=== PATIENT | male | born 1970 | race Caucasian/White ===

== ENCOUNTER 2020-11-02 09:49 | Observation (INO) ==
[2020-11-02] MEDS ORDERED: LORazepam 1 MG/2 ML VIAL IV STA (11:28)
--- NOTE | 2020-11-02 11:31 | Emergency Department Note ---
History of Present Illness General Chief complaint: Dehydration Stated complaint: DEHYDRATED, NAUSEA, HEADACHE Time Seen by Provider: 11/02/20 11:18 History of Present Illness This is a 50-year-old male that presents to the emergency department via private vehicle accompanied by female with complaints of "dehydrated, nausea, headache". The patient notes that October night he began with what he describes as an in digestion sensation in the upper abdomen. He notes that he has been away from home and been eating a lot of seafood. He states that now he time he goes to eat he vomits. He also notes some mild achy sensation from this. He also notes pain with urination. He also notes intermittent fever. Patient does note history of partial colectomy in 2014. The patient denies any other medical history or allergies. He also feels restless and is having trouble sleeping Home Medications Medication Instructions Recorded Confirmed Type sertraline 100 mg tablet 200 mg PO DAILY 11/02/20 11/02/20 History Allergies Allergy/AdvReac Type Severity Reaction Status Date / Time No Known Allergies Allergy Unverified 09/23/15 07:59 Past Med/Surg History Medical History Familial polyposis Surgical History (Updated 11/02/20 @ 17:38 by Carlos Narvaez PA-C) Hx of colectomy Social History Smoking Status: Never smoker Feels Safe at Home: Yes Review of Systems A total of 10 systems reviewed and were otherwise negative Physical Exam Vital Signs Vital Signs - 24 hr 11/02/20 09:55 11/02/20 11:17 11/02/20 11:30 Temperature 37.1 C Temperature Source Temporal Artery Scan Pulse Rate 110 H 94 H 91 H Pulse Rate from SpO2 Sensor 96 H 92 H Respiratory Rate 18 22 20 Blood Pressure 150/84 H 121/72 128/75 Blood Pressure Mean 106 88 92 Pulse Oximetry 95 98 97 Oxygen Delivery Method Sepsis Recent Fever Within 48 Hours Yes Sepsis New/Unexplained Change in Mental Status No Sepsis Action Taken by Nursing No Action Required 11/02/20 12:00 11/02/20 12:29 11/02/20 12:30 Temperature Temperature Source Pulse Rate 87 93 H Pulse Rate from SpO2 Sensor 88 93 H Respiratory Rate 17 22 Blood Pressure 126/72 128/80 Blood Pressure Mean 90 96 Pulse Oximetry 98 97 98 Oxygen Delivery Method Room Air Sepsis Recent Fever Within 48 Hours Sepsis New/Unexplained Change in Mental Status Sepsis Action Taken by Nursing 11/02/20 13:00 11/02/20 13:30 11/02/20 14:00 Temperature Temperature Source Pulse Rate 91 H 92 H 93 H Pulse Rate from SpO2 Sensor 90 93 H 93 H Respiratory Rate 22 22 20 Blood Pressure 119/82 137/80 136/81 Blood Pressure Mean 94 99 99 Pulse Oximetry 94 96 96 Oxygen Delivery Method Sepsis Recent Fever Within 48 Hours Sepsis New/Unexplained Change in Mental Status Sepsis Action Taken by Nursing 11/02/20 14:30 11/02/20 15:01 11/02/20 15:30 Temperature Temperature Source Pulse Rate 90 98 H 88 Pulse Rate from SpO2 Sensor 87 Respiratory Rate 22 16 22 Blood Pressure 125/80 124/77 Blood Pressure Mean 95 92 Pulse Oximetry 94 Oxygen Delivery Method Sepsis Recent Fever Within 48 Hours Sepsis New/Unexplained Change in Mental Status Sepsis Action Taken by Nursing 11/02/20 17:00 Temperature Temperature Source Pulse Rate 87 Pulse Rate from SpO2 Sensor 89 Respiratory Rate 17 Blood Pressure 130/75 Blood Pressure Mean 93 Pulse Oximetry 96 Oxygen Delivery Method Sepsis Recent Fever Within 48 Hours Sepsis New/Unexplained Change in Mental Status Sepsis Action Taken by Nursing Course Administered Medications Discontinued Medications Lorazepam (Ativan) 1 mg in 2 mls @ 2 mls/min IV NOW STA Stop: 11/02/20 11:29 Last Admin: 11/02/20 12:03 Dose: 2 mls/min Documented by: [id number] Sodium Chloride (Nss 1000ml) 1,000 mls @ 999 mls/hr IV .Q1H1M SHAD Stop: 11/02/20 13:00 Last Infusion: 11/02/20 14:40 Dose: 0 mls/hr Documented by: [id number] Admin: 11/02/20 12:08 Dose: 999 mls/hr Documented by: [id number] Ceftriaxone Sodium (Rocephin) 2,000 mg in 70 mls @ 140 mls/hr IV NOW STA Stop: 11/02/20 12:50 Last Infusion: 11/02/20 13:19 Dose: 0 mls/hr Documented by: [id number] Admin: 11/02/20 12:41 Dose: 140 mls/hr Documented by: [id number] Sodium Chloride (Nss 1000ml) 1,000 mls @ 999 mls/hr IV .Q1H1M SHAD Stop: 11/02/20 13:30 Last Infusion: 11/02/20 15:14 Dose: 0 mls/hr Documented by: [id number] Admin: 11/02/20 14:10 Dose: 999 mls/hr Documented by: [id number] Ioversol (Optiray 320 100ml) 94 ml IV ONCE ONE Stop: 11/02/20 12:17 Last Admin: 11/02/20 12:16 Dose: 94 ml Documented by: [id number] Ondansetron HCl (Ondansetron Inj 2 Mg/Ml 2 Ml Vial) 4 mg IV NOW STA Stop: 11/02/20 11:47 Last Admin: 11/02/20 12:03 Dose: 4 mg Documented by: [id number] Medical Decision Making Laboratory Data Result diagrams: 11/02/20 11:09 11/02/20 11:09 Lab Results 11/02/20 11/02/20 11/02/20 Range/Units 11:09 11:09 11:09 WBC 3.74 L (4.8-10.8) K/uL RBC 4.20 L (4.7-6.1) M/uL Hgb 13.3 L (14.0-18.0) g/dL Hct 39.2 L (42-52) % MCV 93.3 (80-100) fL MCH 31.7 (25-34) pg MCHC 33.9 (32-36) g/dL RDW Std Deviation 45.2 (36.4-46.3) fL RDW Coeff of Judy 13.2 (11.5-14.5) % Plt Count 146 (130-400) K/uL MPV 11.0 H (7.4-10.4) fL Immature Gran % (Auto) 0.3 % Neut % (Auto) 74.8 % Lymph % (Auto) 13.1 % [place] % (Auto) 11.2 % Eos % (Auto) 0.3 % Baso % (Auto) 0.3 % Neut # (Auto) 2.80 (1.4-6.5) K/uL Lymph # (Auto) 0.49 L (1.2-3.4) K/uL [place] # (Auto) 0.42 (0.11-0.59) K/uL Eos # (Auto) 0.01 (0-0.5) K/uL Baso # (Auto) 0.01 (0-0.2) K/uL Immature Gran # (Auto) 0.01 (0.00-0.02) K/uL Sodium 136 (136-145) mmol/L Potassium 3.2 L (3.5-5.1) mmol/L Chloride 103 (98-107) mmol/L Carbon Dioxide 24 (21-32) mmol/L Anion Gap 8.0 (3-11) BUN 9 (7-18) mg/dl Creatinine 0.96 (0.6-1.4) mg/dl Est Cr Clr Drug Dosing 128.8 ml/min Est GFR ( Amer) 107.9 ml/min Est GFR (Non-Af Amer) 93.1 ml/min BUN/Creatinine Ratio 9.8 L (10-20) Glucose 117 H (70-99) mg/dl Lactate (0.4-2.0) mmol/L Calcium 8.8 (8.5-10.1) mg/dl Magnesium 1.9 (1.8-2.4) mg/dl Total Bilirubin 0.8 (0.2-1) mg/dl AST 49 H (15-37) U/L ALT 57 (12-78) U/L Alkaline Phosphatase 97 (45-117) U/L Troponin I < 0.015 (0-0.045) ng/ml Total Protein 7.9 (6.4-8.2) gm/dl Albumin 3.3 L (3.4-5.0) gm/dl Globulin 4.6 H (2.5-4.0) gm/dl Albumin/Globulin Ratio 0.7 L (0.9-2) Lipase 81 (73-393) U/L Procalcitonin 0.84 H (0-0.5) ng/ml TSH 0.583 (0.300-4.500) uIu/ml Urine Color Urine Appearance (Clear) Urine pH (4.5-7.5) Ur Specific Howell (1.000-1.030) Urine Protein (Negative) Urine Glucose (UA) (Negative) Urine Ketones (Negative) Urine Blood (Negative) Urine Nitrite (Negative) Urine Bilirubin (Negative) Urine Urobilinogen (Negative) Ur Leukocyte Esterase (Negative) Urine WBC (Auto) (0-5) /hpf Urine RBC (Auto) (0-4) /hpf U Hyaline Cast (Auto) (0-5) /lpf U Epithel Cells (Auto) (0-5) /lpf Urine Bacteria (Auto) (Negative) Anaplasma Smear Lyme Disease IgG Ab Negative (Negative) Lyme Disease IgM Ab Negative (Negative) COVID-19 Eval Order SARS-CoV-2 (PCR) (Negative) 11/02/20 11/02/20 11/02/20 Range/Units 11:09 11:09 11:09 WBC (4.8-10.8) K/uL RBC (4.7-6.1) M/uL Hgb (14.0-18.0) g/dL Hct (42-52) % MCV (80-100) fL MCH (25-34) pg MCHC (32-36) g/dL RDW Std Deviation (36.4-46.3) fL RDW Coeff of Judy (11.5-14.5) % Plt Count (130-400) K/uL MPV (7.4-10.4) fL Immature Gran % (Auto) % Neut % (Auto) % Lymph % (Auto) % [place] % (Auto) % Eos % (Auto) % Baso % (Auto) % Neut # (Auto) (1.4-6.5) K/uL Lymph # (Auto) (1.2-3.4) K/uL [place] # (Auto) (0.11-0.59) K/uL Eos # (Auto) (0-0.5) K/uL Baso # (Auto) (0-0.2) K/uL Immature Gran # (Auto) (0.00-0.02) K/uL Sodium (136-145) mmol/L Potassium (3.5-5.1) mmol/L Chloride (98-107) mmol/L Carbon Dioxide (21-32) mmol/L Anion Gap (3-11) BUN (7-18) mg/dl Creatinine (0.6-1.4) mg/dl Est Cr Clr Drug Dosing ml/min Est GFR ( Amer) ml/min Est GFR (Non-Af Amer) ml/min BUN/Creatinine Ratio (10-20) Glucose (70-99) mg/dl Lactate 2.4 H* (0.4-2.0) mmol/L Calcium (8.5-10.1) mg/dl Magnesium (1.8-2.4) mg/dl Total Bilirubin (0.2-1) mg/dl AST (15-37) U/L ALT (12-78) U/L Alkaline Phosphatase (45-117) U/L Troponin I (0-0.045) ng/ml Total Protein (6.4-8.2) gm/dl Albumin (3.4-5.0) gm/dl Globulin (2.5-4.0) gm/dl Albumin/Globulin Ratio (0.9-2) Lipase (73-393) U/L Procalcitonin Cancelled (0-0.5) ng/ml TSH (0.300-4.500) uIu/ml Urine Color Yellow Urine Appearance Clear (Clear) Urine pH 5.5 (4.5-7.5) Ur Specific Howell 1.015 (1.000-1.030) Urine Protein Negative (Negative) Urine Glucose (UA) Negative (Negative) Urine Ketones Negative (Negative) Urine Blood Trace H (Negative) Urine Nitrite Positive A (Negative) Urine Bilirubin Negative (Negative) Urine Urobilinogen Negative (Negative) Ur Leukocyte Esterase 2+ H (Negative) Urine WBC (Auto) >30 H (0-5) /hpf Urine RBC (Auto) 0-4 (0-4) /hpf U Hyaline Cast (Auto) 10-30 H (0-5) /lpf U Epithel Cells (Auto) 0-5 (0-5) /lpf Urine Bacteria (Auto) 4+ H (Negative) Anaplasma Smear Lyme Disease IgG Ab (Negative) Lyme Disease IgM Ab (Negative) COVID-19 Eval Order SARS-CoV-2 (PCR) (Negative) 11/02/20 11/02/20 11/02/20 Range/Units 11:09 11:35 11:35 WBC (4.8-10.8) K/uL RBC (4.7-6.1) M/uL Hgb (14.0-18.0) g/dL Hct (42-52) % MCV (80-100) fL MCH (25-34) pg MCHC (32-36) g/dL RDW Std Deviation (36.4-46.3) fL RDW Coeff of Judy (11.5-14.5) % Plt Count (130-400) K/uL MPV (7.4-10.4) fL Immature Gran % (Auto) % Neut % (Auto) % Lymph % (Auto) % [place] % (Auto) % Eos % (Auto) % Baso % (Auto) % Neut # (Auto) (1.4-6.5) K/uL Lymph # (Auto) (1.2-3.4) K/uL [place] # (Auto) (0.11-0.59) K/uL Eos # (Auto) (0-0.5) K/uL Baso # (Auto) (0-0.2) K/uL Immature Gran # (Auto) (0.00-0.02) K/uL Sodium (136-145) mmol/L Potassium (3.5-5.1) mmol/L Chloride (98-107) mmol/L Carbon Dioxide (21-32) mmol/L Anion Gap (3-11) BUN (7-18) mg/dl Creatinine (0.6-1.4) mg/dl Est Cr Clr Drug Dosing ml/min Est GFR ( Amer) ml/min Est GFR (Non-Af Amer) ml/min BUN/Creatinine Ratio (10-20) Glucose (70-99) mg/dl Lactate (0.4-2.0) mmol/L Calcium (8.5-10.1) mg/dl Magnesium (1.8-2.4) mg/dl Total Bilirubin (0.2-1) mg/dl AST (15-37) U/L ALT (12-78) U/L Alkaline Phosphatase (45-117) U/L Troponin I (0-0.045) ng/ml Total Protein (6.4-8.2) gm/dl Albumin (3.4-5.0) gm/dl Globulin (2.5-4.0) gm/dl Albumin/Globulin Ratio (0.9-2) Lipase (73-393) U/L Procalcitonin (0-0.5) ng/ml TSH (0.300-4.500) uIu/ml Urine Color Urine Appearance (Clear) Urine pH (4.5-7.5) Ur Specific Howell (1.000-1.030) Urine Protein (Negative) Urine Glucose (UA) (Negative) Urine Ketones (Negative) Urine Blood (Negative) Urine Nitrite (Negative) Urine Bilirubin (Negative) Urine Urobilinogen (Negative) Ur Leukocyte Esterase (Negative) Urine WBC (Auto) (0-5) /hpf Urine RBC (Auto) (0-4) /hpf U Hyaline Cast (Auto) (0-5) /lpf U Epithel Cells (Auto) (0-5) /lpf Urine Bacteria (Auto) (Negative) Anaplasma Smear See Comment Lyme Disease IgG Ab (Negative) Lyme Disease IgM Ab (Negative) COVID-19 Eval Order Covid19 at [facility] SARS-CoV-2 (PCR) NEGATIVE (Negative) 11/02/20 Range/Units 13:44 WBC (4.8-10.8) K/uL RBC (4.7-6.1) M/uL Hgb (14.0-18.0) g/dL Hct (42-52) % MCV (80-100) fL MCH (25-34) pg MCHC (32-36) g/dL RDW Std Deviation (36.4-46.3) fL RDW Coeff of Judy (11.5-14.5) % Plt Count (130-400) K/uL MPV (7.4-10.4) fL Immature Gran % (Auto) % Neut % (Auto) % Lymph % (Auto) % [place] % (Auto) % Eos % (Auto) % Baso % (Auto) % Neut # (Auto) (1.4-6.5) K/uL Lymph # (Auto) (1.2-3.4) K/uL [place] # (Auto) (0.11-0.59) K/uL Eos # (Auto) (0-0.5) K/uL Baso # (Auto) (0-0.2) K/uL Immature Gran # (Auto) (0.00-0.02) K/uL Sodium (136-145) mmol/L Potassium (3.5-5.1) mmol/L Chloride (98-107) mmol/L Carbon Dioxide (21-32) mmol/L Anion Gap (3-11) BUN (7-18) mg/dl Creatinine (0.6-1.4) mg/dl Est Cr Clr Drug Dosing ml/min Est GFR ( Amer) ml/min Est GFR (Non-Af Amer) ml/min BUN/Creatinine Ratio (10-20) Glucose (70-99) mg/dl Lactate 1.4 (0.4-2.0) mmol/L Calcium (8.5-10.1) mg/dl Magnesium (1.8-2.4) mg/dl Total Bilirubin (0.2-1) mg/dl AST (15-37) U/L ALT (12-78) U/L Alkaline Phosphatase (45-117) U/L Troponin I (0-0.045) ng/ml Total Protein (6.4-8.2) gm/dl Albumin (3.4-5.0) gm/dl Globulin (2.5-4.0) gm/dl Albumin/Globulin Ratio (0.9-2) Lipase (73-393) U/L Procalcitonin (0-0.5) ng/ml TSH (0.300-4.500) uIu/ml Urine Color Urine Appearance (Clear) Urine pH (4.5-7.5) Ur Specific Howell (1.000-1.030) Urine Protein (Negative) Urine Glucose (UA) (Negative) Urine Ketones (Negative) Urine Blood (Negative) Urine Nitrite (Negative) Urine Bilirubin (Negative) Urine Urobilinogen (Negative) Ur Leukocyte Esterase (Negative) Urine WBC (Auto) (0-5) /hpf Urine RBC (Auto) (0-4) /hpf U Hyaline Cast (Auto) (0-5) /lpf U Epithel Cells (Auto) (0-5) /lpf Urine Bacteria (Auto) (Negative) Anaplasma Smear Lyme Disease IgG Ab (Negative) Lyme Disease IgM Ab (Negative) COVID-19 Eval Order SARS-CoV-2 (PCR) (Negative) Imaging Data Radiologist's Impression: Abdomen/Pelvis CT 11/02/20 11:28 CT abd pelvis IV con only CLINICAL HISTORY: emesis, hx colectomy FEVER, CHILLS, NAUSEA COMPARISON STUDY: None. TECHNIQUE: The patient was scanned in a dynamic helical fashion during intravenous administration of 94 cc of Optiray 320 A dose lowering technique was utilized adhering to the principles of ALARA. CT DOSE: 1430.35 mGy.cm FINDINGS: Lower chest: There are mild basilar atelectatic changes Liver: There is mild hepatic steatosis. No focal hepatic masses are visualized. There is no ductal dilatation Gallbladder: Surgically absent Spleen: Mildly enlarged measuring 13 cm Pancreas: Unremarkable. Adrenal glands: Unremarkable. Kidneys: There is upper pole right renal cortical scarring. There is a 1 cm right renal hypodensities statistically representing a cyst. Bowel: There are no transition zones to indicate bowel obstruction. Postsurgical changes are present within the colon with a sigmoid anastomosis. The patient appears be status post a subtotal colectomy. Peritoneum: There is no intraperitoneal free air or abdominal ascites. There is a tiny fat-containing periumbilical hernia. A partially rim calcified fat density lesion within the pelvis likely represents an area of fat necrosis. There are very small fat-containing inguinal hernias. Vasculature: The abdominal aorta is normal in course and caliber. Adenopathy: None. Pelvic viscera: There is mild bladder wall thickening and minimal infiltration of the perivesical fat. Clinical correlation with regards to cystitis is recommended. 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 Skeletal structures: There are postsurgical changes of bilateral hip arthroplasties. IMPRESSION: 1. Postsurgical changes of a prior subtotal colectomy 2. No evidence of bowel obstruction. No evidence of free air 3. Mild bladder wall thickening and infiltration of perivesical fat. Clinical correlation with regards to a cystitis is recommended 4. Hepatic steatosis and mild splenomegaly ACT 112: Negative or not required by law. Electronically signed by: Sabino Fallon M.D. 11/02/2020 12:29 PM Chest X-Ray 11/02/20 11:29 XR chest 1V portable CLINICAL HISTORY: cough, emesis COMPARISON STUDY: 05/02/2013 FINDINGS: The cardiac and mediastinal contours remain stable. There is no failure. There is no focal pulmonary consolidation. There are no pleural effusions. Surgical clips project over the aortic knob.[ IMPRESSION: No active disease in the chest. ACT 112: Negative or not required by law. Electronically signed by: Sabino Fallon M.D. 11/02/2020 12:04 PM [facility] Narrative Patient was seen and evaluated as above in room B11. Review was performed of nursing notes and vital signs. I did review pertinent previous visits and patient history. After obtaining a thorough history and physical examination the above work up was performed. Patient presents to us today feeling dehydrated with associated nausea, headache and inability to tolerate p.o. fluids and food at home noting vomiting. Options of care were discussed with the patient. IV access established. Labs were drawn. WBC decreased at 3.74 as well as decrease in the patient's RBC, h emoglobin and hematocrit. Hemoglobin 13.3. There is mild hypokalemia at 3.2. AST mildly elevated at 49. Troponin negative. TSH reveals euthyroid state. Pro-Ruddy 0.84. Urinalysis is concerning for UTI. Lyme testing negative. Anaplasmosis testing pending. Covid testing negative. A CT scan was obtained of the abdomen and pelvis. Results as above. This is essentially negative for any emergent surgical process however there is note of mild bladder wall thickening infiltration of the perivesical fat. Clinically this does correlate with likely cystitis. Chest x-ray is negative for acute process. Patient was given IV Rocephin here. With the patient's intermittent fevers as well as in ability to tolerate p.o. fluids and food at home noting the vomiting with associated UTI here both evident on urinalysis/CT I do believe that further evaluation and management in the inpatient setting is warranted. Concern is over discharging the patient on p.o. meds when he has not been able to tolerate food or fluids at home. Case discussed with the attending physician as well as the hospitalist. Please refer to further documentation regarding his stay. I will note that the patient did request something to help as he was feeling quite restless and therefore was given IV Ativan. He was also given fluids, Zofran, 2 g of ceftriaxone IV. GCS: 15 In the evaluation and treatment of this patient the following differential diagnoses were entertained: UTI, pyelonephritis, bowel obstruction, anaplasmosis, Lyme, pericarditis, gastroenteritis, cholecystitis, pancreatitis, among others. Impression & Plan Acute UTI, Nausea & vomiting Discharge Plan Visit Data Chief Complaint: Dehydration Stated Complaint: DEHYDRATED, NAUSEA, HEADACHE ED Provider: Becca Bunch ED Midlevel Provider: Carlos Narvaez Discharge Problem: Acute UTI, Nausea & vomiting Patient Disposition: Home - Self-Care Condition: Good Forms Stand Alone Forms: [facility], [facility] Emergency Department, Important Visit Information Prescriptions Prescriptions: No Action sertraline 100 mg tablet 200 mg PO DAILY RF: 0 Referrals Referrals: Rhonda Barahona CRNP [Primary Care Provider] -
[2020-11-02 11:38] LABS: Basophils # (auto) 0.01 K/uL (0-0.2); Basophils % (auto) 0.3 %; Eosinophils # (auto) 0.01 K/uL (0-0.5); Eosinophils % (auto) 0.3 %; Hematocrit (blood only) 39.2 % (42-52); Hemoglobin 13.3 g/dL (14.0-18.0); Immature Granulocytes # (auto) 0.01 K/uL (0.00-0.02); Immature Granulocytes % (auto) 0.3 %; Lymphocytes # (auto) 0.49 K/uL (1.2-3.4); Lymphocytes % (auto) 13.1 %; Mean Corpuscular Hemoglobin 31.7 pg (25-34); Mean Corpuscular Hgb Conc 33.9 g/dL (32-36); Mean Corpuscular Volume 93.3 fL (80-100); Monocytes # (auto) 0.42 K/uL (0.11-0.59); Monocytes % (auto) 11.2 %; Neutrophils % (auto) 74.8 %; Platelet Count 146 K/uL (130-400); RDW Coefficient of Variation 13.2 % (11.5-14.5); RDW Standard Deviation 45.2 fL (36.4-46.3); White Blood Count 3.74 K/uL (4.8-10.8)
[2020-11-02 11:44] LABS: Albumin Level 3.3 gm/dl (3.4-5.0); BUN Creatinine Ratio 9.8 (10-20); Blood Urea Nitrogen 9 mg/dl (7-18); Calcium 8.8 mg/dl (8.5-10.1); Carbon Dioxide 24 mmol/L (21-32); Chloride 103 mmol/L (98-107); Creatinine Clr Calc Pharmacy 128.8 ml/min; Est GFR (African American) 107.9 ml/min; Est GFR (Non-African American) 93.1 ml/min; Glucose 117 mg/dl (70-99); Lipase 81 U/L (73-393); Magnesium 1.9 mg/dl (1.8-2.4); Potassium 3.2 mmol/L (3.5-5.1); Sodium 136 mmol/L (136-145)
[2020-11-02] MEDS ORDERED: ONDANSETRON INJ 2 MG/ML 2 ML VIAL IV STA (11:46)
[2020-11-02 11:47] LABS: Appearance Urine Clear (Clear); Bacteria Urine Automated 4+ (Negative); Bilirubin Urine Negative (Negative); Blood Urine Trace (Negative); Color Urine Yellow; Epithelial Cell Urine Auto 0-5 /lpf (0-5); Glucose Urine UA Negative (Negative); Ketones Urine Negative (Negative); Leukocyte Esterase Urine 2+ (Negative); Nitrite Urine Positive (Negative); Protein Urine Negative (Negative); RBC Urine Automated 0-4 /hpf (0-4); Specific Gravity Urine 1.015 (1.000-1.030); Urobilinogen Urine Negative (Negative); WBC Urine Automated >30 /hpf (0-5); pH Urine 5.5 (4.5-7.5)
[2020-11-02 11:54] LABS: Alanine Aminotransferase 57 U/L (12-78); Albumin Globulin Ratio 0.7 (0.9-2); Alkaline Phosphatase 97 U/L (45-117); Aspartate Aminotransferase 49 U/L (15-37); Bilirubin,Total 0.8 mg/dl (0.2-1); Globulin 4.6 gm/dl (2.5-4.0); Thyroid Stimulating Hormone 0.583 uIu/ml (0.300-4.500); Total Protein 7.9 gm/dl (6.4-8.2); Troponin I < 0.015 ng/ml (0-0.045)
[2020-11-02] MEDS ORDERED: SODIUM CHLORIDE 0.9% 1000ML 1,000 ML IV SCH ×2 (12:00→12:30)
--- NOTE | 2020-11-02 12:06 | XRay Report ---
XR chest 1V portable CLINICAL HISTORY: cough, emesis COMPARISON STUDY: 05/02/2013 FINDINGS: The cardiac and mediastinal contours remain stable. There is no failure. There is no focal pulmonary consolidation. There are no pleural effusions. Surgical clips project over the aortic knob. [ IMPRESSION: No active disease in the chest. ACT 112: Negative or not required by law. Electronically signed by: Sabino Fallon M.D. 11/02/2020 12:04 PM
[2020-11-02 12:16] LABS: Lyme Ab IgG w/WB Rflx Negative (Negative); Lyme Ab IgM w/WB Rflx Negative (Negative)
[2020-11-02] MEDS ORDERED: OPTIRAY 320 100ml IV ONE (12:16)
[2020-11-02] MEDS ORDERED: cefTRIAXone SODIUM 2,000 MG/70 ML BAG IV STA (12:21)
[2020-11-02 12:23] LABS: Procalcitonin 0.84 ng/ml (0-0.5)
--- NOTE | 2020-11-02 12:31 | CT Scan Report ---
CT abd pelvis IV con only CLINICAL HISTORY: emesis, hx colectomy FEVER, CHILLS, NAUSEA COMPARISON STUDY: None. TECHNIQUE: The patient was scanned in a dynamic helical fashion during intravenous administration of 94 cc of Optiray 320 A dose lowering technique was utilized adhering to the principles of ALARA. CT DOSE: 1430.35 mGy.cm FINDINGS: Lower chest: There are mild basilar atelectatic changes Liver: There is mild hepatic steatosis. No focal hepatic masses are visualized. There is no ductal di latation Gallbladder: Surgically absent Spleen: Mildly enlarged measuring 13 cm Pancreas: Unremarkable. Adrenal glands: Unremarkable. Kidneys: There is upper pole right renal cortical scarring. There is a 1 cm right renal hypodensities statistically representing a cyst. Bowel: There are no transition zones to indicate bowel obstruction. Postsurgical changes are present within the colon with a sigmoid anastomosis. The patient appears be status post a subtotal colectomy. Peritoneum: There is no intraperitoneal free air or abdominal ascites. There is a tiny fat-containing periumbilical hernia. A partially rim calcified fat density lesion within the pelvis likely represen ts an area of fat necrosis. There are very small fat-containing inguinal hernias. Vasculature: The abdominal aorta is normal in course and caliber. Adenopathy: None. Pelvic viscera: There is mild bladder wall thickening and minimal infiltration of the perivesical fat . Clinical correlation with regards to cystitis is recommended. 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 Skeletal structures: There are postsurgical changes of bilateral hip arthroplasties. IMPRESSION: 1. Postsurgical changes of a prior subtotal colectomy 2. No evidence of bowel obstruction. No evidence of free air 3. Mild bladder wall thickening and infiltration of perivesical fat. Clinical correlation with regard s to a cystitis is recommended 4. Hepatic steatosis and mild splenomegaly ACT 112: Negative or not required by law. Electronically signed by: Sabino Fallon M.D. 11/02/2020 12:29 PM
--- NOTE | 2020-11-02 13:56 | History & Physical Report ---
Date of Service November 02, 2020 Assessment & Plan (1) Nausea & vomiting: Plan: May be secondary to mild sepsis, dehydration Will treat symptomatically with Zofran, gentle hydration Repeat lactic acid in 4 hours Start clear liquid diet, slowly advance as tolerated (2) Acute UTI: Plan: Patient was started on Rocephin empirically, will continue until urine culture results available No evidence of deeper infection (3) Leukopenia: Plan: Mild, may be secondary to sepsis. I will continue to monitor with treatment. History of Present Illness Chief Complaint: Intractable nausea/vomiting Primary Care Provider: ANEUDY Miranda This is a 50-year-old male with past medical history of familial polyposis, status post subtotal colectomy that presents today complaining of intractable nausea vomiting. Patient is here with his and both give very good history. Patient tells me symptoms started approximately 1 week ago. He was on vacation in [place]. tells me that he was not hydrating well and only drinking beer and soda. He started having some nausea along with vomiting. At the seem to occur mostly after eating and consisted of of food material. There was no bleeding. He notes that he was having bowel movements, they were a little loose but nonbloody and had formed elements. There is no abdominal pain. He also felt generally weak. Over the past 48 hours he thinks he has had fevers as well, although these were subjective and he did not take his temperature. He returned from [place] on Monday and spends Monday with in bed. After 24 hours without resolution of symptoms, he came to the emergency room for further evaluation. In the ER, he was found to have mostly normal laboratory with mildly elevated lactic acid. He was afebrile. Of note, patient had significant pyuria and is now being mated for treatment of intractable nausea vomiting, likely secondary to urinary tract infection. Allergies Allergy/AdvReac Type Severity Reaction Status Date / Time No Known Allergies Allergy Unverified 09/23/15 07:59 Home Medications Medication Instructions Recorded Confirmed Type sertraline 100 mg tablet 200 mg PO DAILY 11/02/20 11/02/20 History Past Med/Surg History Medical History Familial polyposis Social History Smoking Status: Never smoker Feels Safe at Home: Yes Review of Systems Constitutional: + fever and + chills; no weakness, no weight loss and no weight gain Eyes: as per Subjective / HPI Respiratory: no cough, no chest congestion, no dyspnea and no dyspnea on exertion Cardiovascular: no chest pain, no orthopnea, no palpitations, no lightheade dness and no edema Gastrointestinal: + nausea and + vomiting; no abdominal pain, no heartburn, no coffee ground emesis, no pain with swallowing, no constipation and no di arrhea/loose stools Musculoskeletal: no back pain, no neck pain, no joint pain, no stiffness and no myalgia Integumentary: no rash Neurologic: no gait abnormality, no unsteadiness, no falls and no generalized weakness Physical Exam Constitutional: cooperative; no acute distress Neck: trachea midline, no thyromegaly Respiratory: normal respiratory effort Auscultation: lungs clear to auscultation bilaterally; no crackles, no rales, no rhonchi and no wheezes Cardiovascular: Rate/Rhythm: regular rate and regular rhythm Heart Sounds: normal S1 and normal S2; no murmur Gastrointestinal (Abdomen): Inspection/Auscultation: abdomen normal to inspection Percussion/Palpation: abdomen soft; abdomen nontender, no guarding, abdomen not rigid and no hepatosplenomegaly Skin: no rashes, warm and dry Results & Data Results & Data ([facility]) Vital Signs (Past 12 Hours) Vital Signs Temp Pulse Resp BP Pulse Ox 11/02/20 13:00 91 H 22 119/82 94 11/02/20 12:30 93 H 22 128/80 98 11/02/20 12:29 97 11/02/20 12:00 87 17 126/72 98 11/02/20 11:30 91 H 20 128/75 97 11/02/20 11:17 94 H 22 121/72 98 11/02/20 09:55 37.1 C 110 H 18 150/[address] abd pelvis IV con only CLINICAL HISTORY: emesis, hx colectomy FEVER, CHILLS, NAUSEA COMPARISON STUDY: None. TECHNIQUE: The patient was scanned in a dynamic helical fashion during intravenous administration of 94 cc of Optiray 320 A dose lowering technique was utilized adhering to the principles of ALARA. CT DOSE: 1430.35 mGy.cm FINDINGS: Lower chest: There are mild basilar atelectatic changes Liver: There is mild hepatic steatosis. No focal hepatic masses are visualized. There is no ductal dilatation Gallbladder: Surgically absent Spleen: Mildly enlarged measuring 13 cm Pancreas: Unremarkable. Adrenal glands: Unremarkable. Kidneys: There is upper pole right renal cortical scarring. There is a 1 cm right renal hypodensities statistically representing a cyst. Bowel: There are no transition zones to indicate bowel obstruction. Postsurgical changes are present within the colon with a sigmoid anastomosis. The patient appears be status post a subtotal colectomy. Peritoneum: There is no intraperitoneal free air or abdominal ascites. There is a tiny fat-containing periumbilical hernia. A partially rim calcified fat density lesion within the pelvis likely represents an area of fat necrosis. There are very small fat-containing inguinal hernias. Vasculature: The abdominal aorta is normal in course and caliber. Adenopathy: None. Pelvic viscera: There is mild bladder wall thickening and minimal infiltration of the perivesical fat. Clinical correlation with regards to cystitis is recommended. 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 Skeletal structures: There are postsurgical changes of bilateral hip arthroplasties. IMPRESSION: 1. Postsurgical changes of a prior subtotal colectomy 2. No evidence of bowel obstruction. No evidence of free air 3. Mild bladder wall thickening and infiltration of perivesical fat. Clinical correlation with regards to a cystitis is recommended 4. Hepatic steatosis and mild splenomegaly PG Care Time/CCT Total # of Minutes Spent Total Time Spent with Patient: Total time spent is greater than 50% in coordination of care (as documented) at patient's floor/unit and/or counseling patient: Coding Level of Care Code INT OBSERVATION CARE 70M LVL 3 Diagnoses Acute UTI N39.0 Nausea & vomiting R11.2 Leukopenia D72.819
--- NOTE | 2020-11-02 14:06 | Electrocardiogram Report ---
Test Reason : Blood Pressure : / mmHG Vent. Rate : 089 BPM Atrial Rate : 089 BPM P-R Int : 180 ms QRS Dur : 084 ms QT Int : 340 ms P-R-T Axes : 056 034 037 degrees QTc Int : 413 ms Normal sinus rhythm Normal ECG When compared with ECG of 01-APR-2014 12:55, Nonspecific T wave abnormality now evident in Anterior leads Confirmed by Talon Gutierrez ([id number]) on 11/02/2020 2:05:46 PM Referred By: Rhonda Barahona Confirmed By:Talon Gutierrez
[2020-11-02] MEDS ORDERED: ONDANSETRON INJ 2 MG/ML 2 ML VIAL IV PRN (20:00)
[2020-11-02] MEDS ORDERED: ZOLPIDEM TARTRATE 5 MG TAB PO PRN (20:00)
[2020-11-02] MEDS ORDERED: ACETAMINOPHEN 325 MG TAB PO PRN (20:00)
[2020-11-02] MEDS: SODIUM CHLORIDE 0.9% 1000ML 1,000 ML IV SCH (20:22)
[2020-11-02 20:32] LABS: Base Excess ABG 1.2 mEq/L (-9-1.8); HCO3 ABG 26 mmol/L (19-24); Oxygen Saturation ABG 63.4 % (90-95); PCO2 ABG 39 mmHg (35-46); PO2 ABG 33 mmHg (80-95); pH ABG 7.43 (7.35-7.45)
[2020-11-02 20:33] LABS: Allen Test Pos (Pos)
[2020-11-03] MEDS ORDERED: diphenhydrAMINE 50 MG/ML VIAL ONE (01:55)
[2020-11-03] MEDS ORDERED: diphenhydrAMINE 50 MG/ML VIAL IV STA (01:58)
[2020-11-03] MEDS: SODIUM CHLORIDE 0.9% 1000ML 1,000 ML IV SCH (06:25)
[2020-11-03 06:28] LABS: Basophils # (auto) 0.01 K/uL (0-0.2); Basophils % (auto) 0.2 %; Eosinophils # (auto) 0.01 K/uL (0-0.5); Eosinophils % (auto) 0.2 %; Hematocrit (blood only) 34.9 % (42-52); Hemoglobin 11.8 g/dL (14.0-18.0); Immature Granulocytes # (auto) 0.03 K/uL (0.00-0.02); Immature Granulocytes % (auto) 0.7 %; Lymphocytes # (auto) 1.06 K/uL (1.2-3.4); Lymphocytes % (auto) 25.5 %; Mean Corpuscular Hemoglobin 31.1 pg (25-34); Mean Corpuscular Hgb Conc 33.8 g/dL (32-36); Mean Corpuscular Volume 92.1 fL (80-100); Mean Platelet Volume 10.1 fL (7.4-10.4); Monocytes # (auto) 0.57 K/uL (0.11-0.59); Monocytes % (auto) 13.7 %; Neutrophils # (auto) 2.47 K/uL (1.4-6.5); Neutrophils % (auto) 59.7 %; Platelet Count 138 K/uL (130-400); RDW Coefficient of Variation 13.3 % (11.5-14.5); Red Blood Count 3.79 M/uL (4.7-6.1); White Blood Count 4.15 K/uL (4.8-10.8)
[2020-11-03 07:30] LABS: Albumin Globulin Ratio 0.7 (0.9-2); Albumin Level 2.8 gm/dl (3.4-5.0); BUN Creatinine Ratio 9.5 (10-20); Bilirubin,Total 0.7 mg/dl (0.2-1); Calcium 8.7 mg/dl (8.5-10.1); Creatinine Clr Calc Pharmacy 143.7 ml/min; Est GFR (African American) 118.8 ml/min; Est GFR (Non-African American) 102.5 ml/min; Globulin 3.8 gm/dl (2.5-4.0); Potassium 3.7 mmol/L (3.5-5.1); Total Protein 6.6 gm/dl (6.4-8.2)
[2020-11-03] MEDS ORDERED: SERTRALINE HCL 100 MG TABLET PO SCH (09:00)
[2020-11-03] MEDS ORDERED: LORazepam 0.5 MG TAB PO STA (09:15)
[2020-11-03] MEDS ORDERED: cefTRIAXone SODIUM 2,000 MG in DEXTROSE 5% 50 ML IV SCH (10:00)
--- NOTE | 2020-11-03 10:56 | Discharge Summary ---
Date of Service November 03, 2020 Admission HPI Per Admitting Provider This is a 50-year-old male with past medical history of familial polyposis, status post subtotal colectomy that presents today complaining of intractable nausea vomiting. Patient is here with his and both give very good history. Patient tells me symptoms started approximately 1 week ago. He was on vacation in [place]. tells me that he was not hydrating well and only drinking beer and soda. He started having some nausea along with vomiting. At the seem to occur mostly after eating and consisted of of food material. There was no bleeding. He notes that he was having bowel movements, they were a little loose but nonbloody and had formed elements. There is no abdominal pain. He also felt generally weak. Over the past 48 hours he thinks he has had fevers as well, although these were subjective and he did not take his temperature. He returned from [place] on Monday and spends Monday with in bed. After 24 hours without resolution of symptoms, he came to the emergency room for further evaluation. In the ER, he was found to have mostly normal laboratory with mildly elevated lactic acid. He was afebrile. Of note, patient had significant pyuria and is now being mated for treatment of intractable nausea vomiting, likely secondary to urinary tract infection. Admission Exam Per Admitting Provider Constitutional: cooperative; no acute distress Neck: trachea midline, no thyromegaly Respiratory: normal respiratory effort Auscultation: lungs clear to auscultation bilaterally; no crackles, no rales, no rhonchi and no wheezes Cardiovascular: Rate/Rhythm: regular rate and regular rhythm Heart Sounds: normal S1 and normal S2; no murmur Gastrointestinal (Abdomen): Inspection/Auscultation: abdomen normal to inspection Percussion/Palpation: abdomen soft; abdomen nontender, no guarding, abdomen not rigid and no hepatosplenomegaly Skin: no rashes, warm and dry Principal Diagnosis 1. Urinary tract infection, gram-negative rods. Final cultures pending 2. Intractable nausea vomiting, resolved 3. History of familial polyposis, status post partial colectomy, stable Discharge Exam Constitutional cooperative; no acute distress Neck trachea midline, no thyromegaly Respiratory normal respiratory effort Auscultation: lungs clear to auscultation bilaterally; no crackles, no rales, no rhonchi and no wheezes Cardiovascular Rate/Rhythm: regular rate and regular rhythm Heart Sounds: normal S1 and normal S2; no murmur Gastrointestinal (Abdomen) Inspection/Auscultation: abdomen normal to inspection Percussion/Palpation: abdomen soft; abdomen nontender, no guarding, abdomen not rigid and no hepatosplenomegaly Skin no rashes, warm and dry Discharge Data Allergies Allergy/AdvReac Type Severity Reaction Status Date / Time No Known Allergies Allergy Unverified 09/23/15 07:59 Consultations 11/02/20 13:03 ED Decision to Admit Stat Ordered Studies 11/02/20 11:28 CT abd pelvis IV con only Stat Hospital Course (1) Nausea & vomiting: May be secondary to mild sepsis, dehydration Will treat symptomatically with Zofran, gentle hydration Repeat lactic acid in 4 hours Start clear liquid diet, slowly advance as tolerated On 11/03, patient told us it felt much better and was requesting regular diet. Normal note tolerance to this prior to discharge. (2) Acute UTI: Patient was started on Rocephin empirically, will continue until urine culture results available No evidence of deeper infection Urine culture growing grainy rods. Patient asked if he can be discharged today as he has difficulty sleeping here. He does seem to have responded well to the antibiotics. tier over to Omnicef 300 mg p.o. twice daily for the next 10 days. Patient was told to follow-up with his primary care provider in the next 24 to 48 hours to discuss final culture results, see if empiric antibiotics need to be changed based on sensitivities. (3) Leukopenia: Mild, may be secondary to sepsis. I will continue to monitor with treatment. This is improved the time of discharge, routine follow-up as needed. Total Time Total Time Spent Total Time Spent (In Minutes): 32 Discharge Plan Discharge Items Patient Disposition: Home - Self-Care Reason For Visit: UTI Discharge Diagnosis: 1. Urinary tract infection, cultures pending 2. Mild leukopenia, resolving 3. Intractable nausea vomiting, likely secondary to infection. Resolved Condition on Discharge: Good Activity: Resume your previous activity Non-emergency contact: Primary Care Provider Call non-emergency contact if: you have any medication questions, your symptoms worsen and you have a fever Follow-up/Referrals: Rhonda Barahona CRNP [Primary Care Provider] - (Call to discuss culture results 24-48 hours after discharge from hospital.) Diet: Regular Diet Comment: stay hydrated Addtl Attending Provider Instructions: None Pending Studies at Discharge: Yes Studies:: Follow-up with your primary care provider in the next 48 hours to discuss final culture results. These were not available at the time of your discharge. Stand-Alone Forms: My [facility], Smoking Cessation Medications and DC Order Prescriptions: New cefdinir 300 mg capsule 300 mg PO BID 10 Days Qty: 20 RF: 0 cefdinir 300 mg capsule 300 mg PO BID 10 Days Qty: 20 RF: 0 Continued sertraline 100 mg tablet 200 mg PO DAILY RF: 0 Discharge Orders: Discharge Order (Routine); Ordered 11/03/20 Ordered By: Marlon Oliveira Admission Data Admit Date/Time: 11/02/20 14:13 Attending Provider: Marlon Oliveira Admit Provider: Marlon Oliveira Primary Care Provider: Rhonda Barahona Other Providers: Marlon Oliveira Coding Level of Care Code 73282 OBS Care - Discharge Diagnoses Nausea & vomiting R11.2 Acute UTI N39.0 Leukopenia D72.819
== END 2020-11-03 13:11 | disposition home or self-care (01) ==
LOC: 3W 09:49 → ED 09:49 → 3W 19:39